=== PATIENT | male | born 1995 | race Caucasian/White ===

== ENCOUNTER 2017-04-25 20:10 | Inpatient (IN) | payer OTHER, MEDICAID ==
[2017-04-25] MEDS ORDERED: LORazepam 2 MG/ML INJ ONE (20:30)
--- NOTE | 2017-04-25 20:59 | EDPHY ---
H & P Smoking Status: Current every day smoker Time Seen by Provider: 04/25/17 20:18 HPI/ROS: CHIEF COMPLAINT: Schizophrenia HISTORY OF PRESENT ILLNESS: 22-year-old male presents to the emergency department with his mother who was delusional and paranoid. Patient has a history of the schizophrenia nausea and has been off medication for several months. His mother states that he has not been sleeping well. He has not been eating well. He denies chest pain or difficulty breathing. Denies abdominal pain. He admits to smoking cigarettes and marijuana. No reported fever. No trauma. REVIEW OF SYSTEMS: Constitutional: No fever, no chills. Eyes: No double or blurry vision. ENT: No sore throat. Respiratory: No cough, no shortness of breath. Cardiac: No chest pain. Gastrointestinal: No abdominal pain, vomiting or diarrhea. Genitourinary: No dysuria. Musculoskeletal: No neck or back pain. Skin: No rashes. Neurological: No headache. (Christy Bush) Past Medical/Surgical History: Schizophrenia (Christy Bush) Social History: Lives at home with his mother (Christy Bush) Physical Exam: General Appearance: Alert, no distress. Mother at bedside. Eyes: Pupils equal and round. Extraocular motions are all intact. ENT: Mouth: Mucous membranes moist. Respiratory: No wheezing, rhonchi, or rales, lungs are clear to auscultation. Cardiovascular: Regular rate and rhythm. Gastrointestinal: Abdomen is soft and nontender, no masses, no rebound or guarding, bowel sounds normal. Neurological: Alert and oriented x 3, cranial nerves II through XII grossly intact Skin: Warm and dry, no rashes. Musculoskeletal: Nontender to palpate along the cervical, thoracic or lumbar spine. Neck is supple. Extremities: Full range of motion and no peripheral edema. Psychiatric: Patient is oriented X 3, there is no agitation. (Christy Bush) Constitutional: Initial Vital Signs Temperature (C) 37.2 C 04/25/17 20:10 Heart Rate 112 H 04/25/17 20:10 Respiratory Rate 20 04/25/17 20:10 Blood Pressure 127/86 H 04/25/17 20:10 O2 Sat (%) 98 04/25/17 20:10 O2 Delivery Mode Room Air Allergies/Adverse Reactions: No Known Allergies Allergy (Unverified 04/25/17 20:42) Home Medications: Medication Instructions Recorded NK [No Known Home Meds] 04/25/17 Medical Decision Making ED Course/Re-evaluation: 22-year-old male presents to the emergency department a history of schizophrenia off medication. He is delusional and paranoid. He was given 2 mg of Ativan IV. Laboratory studies are pending. Patient has been medically cleared and is awaiting mental health evaluation. ( Christy Bush) Patient has been evaluated by mental health and has been accepted for admission at [facility]. He remained stable. (Bruce Brewer) Differential Diagnosis: Apparent schizophrenia exacerbation and off meds. Plan is admission (Bruce Brewer) Other Provider: PHYSICIAN DOCUMENTATION: The patient was evaluated and managed by the Physician Equipment Manager and myself. I have reviewed the chart and agree with the findings and plan of care as documented. In addition, I examined the patient myself at 2202. History confirmed as for schizophrenia off medications for the last 3 months. Physical findings as follows: Currently cooperative, not actively hallucinating. Signed out to Dr. Choco sun at 2300 with psychiatric evaluation pending. I am the secondary supervising physician. (Yung Peter) 0100 care assumed by me pending mental health evaluation. 0700 patient has been seen by the mental health landscaper helper. Plan will be to admit to [address] [place] [address]. The do not yet have an accepting doctor. Patient is signed out to Dr. Brewer pending placement. No issues during my care this patient overnight. (Alex Sun) Care Turn Over: Care will be turned over to Dr. Sun for disposition and plan. (Christy Bush ) - Data Points Laboratory Results: Laboratory Results 04/25/17 20:30 04/25/17 20:30 04/25/17 04/25/17 04/25/17 21:48 20:30 20:30 WBC 14.37 10^3/uL H 10^3/uL (3.80-9.50) RBC 4.73 10^6/uL 10^6/uL (4.40-6.38) Hgb 13.2 g/dL L g/dL (13.7-17.5) Hct 38.2 % L % (40.0-51.0) MCV 80.8 fL L fL (81.5-99.8) MCH 27.9 pg pg (27.9-34.1) MCHC 34.6 g/dL g/dL (32.4-36.7) RDW 14.7 % % (11.5-15.2) Plt Count 501 10^3/uL H 10^3/uL (150-400) MPV 8.5 fL L fL (8.7-11.7) Neut % (Auto) 77.5 % H % (39.3-74.2) Lymph % (Auto) 13.9 % L % (15.0-45.0) [place] % (Auto) 7.3 % % (4.5-13.0) Eos % (Auto) 0.3 % L % (0.6-7.6) Baso % (Auto) 0.4 % % (0.3-1.7) Nucleat RBC Rel Count 0.0 % % (0.0-0.2) Absolute Neuts (auto) 11.13 10^3/uL H 10^3/uL (1.70-6.50) Absolute Lymphs (auto) 2.00 10^3/uL 10^3/uL (1.00-3.00) Absolute Monos (auto) 1.05 10^3/uL H 10^3/uL (0.30-0.80) Absolute Eos (auto) 0.05 10^3/uL 10^3/uL (0.03-0.40) Absolute Basos (auto) 0.06 10^3/uL 10^3/uL (0.02-0.10) Absolute Nucleated RBC 0.00 10^3/uL 10^3/uL (0-0.01) Immature Gran % 0.6 % % (0.0-1.1) Immature Gran # 0.08 10^3/uL 10^3/uL (0.00-0.10) Sodium 138 mEq/L mEq/L (134-144) Potassium 4.1 mEq/L mEq/L (3.5-5.2) Chloride 105 mEq/L mEq/L (97-110) Carbon Dioxide 22 mEq/l mEq/l (22-31) Anion Gap 11 mEq/L mEq/L (8-16) BUN 12 mg/dL mg/dL (7-23) Creatinine 1.0 mg/dL mg/dL (0.7-1.3) Estimated GFR > 60 Glucose 114 mg/dL H mg/dL (70-100) Calcium 10.0 mg/dL mg/dL (8.5-10.4) TSH 1.530 uIU/mL uIU/mL (0.465-4.680) Urine Opiates Screen NEGATIVE (NEGATIVE) Urine Barbiturates NEGATIVE (NEGATIVE) Ur Phencyclidine Scrn NEGATIVE (NEGATIVE) Ur Amphetamine Screen NEGATIVE (NEGATIVE) U Benzodiazepines Scrn NEGATIVE (NEGATIVE) Urine Cocaine Screen NEGATIVE (NEGATIVE) U Marijuana (THC) Screen NEGATIVE (NEGATIVE) Medications Given: Discontinued Medications Nicotine (Nicoderm Cq) 14 mg TD EDNOW ONE Stop: 04/25/17 22:10 Last Admin: 04/25/17 22:32 Dose: 14 mg Departure - Departure Disposition: [facility] IP Clinical Impression: Schizophrenia Qualifiers: Schizophrenia type: unspecified Qualified Code(s): F20.9 - Schizophrenia, unspecified Condition: Fair Referrals: Trung Nunes DO [Primary Care Provider] - As per Instructions
[2017-04-25 21:03] LABS: % IMMATURE GRANULYOCYTES 0.6 % (0.0-1.1); ABSOLUTE IMMATURE GRANULOCYTES 0.08 10^3/uL (0.00-0.10); ADD DIFF? NO; HEMATOCRIT 38.2 % (40.0-51.0); HEMOGLOBIN 13.2 g/dL (13.7-17.5); MEAN CELL HEMOGLOBIN 27.9 pg (27.9-34.1); MEAN CELL HEMOGLOBIN CONCENTR. 34.6 g/dL (32.4-36.7); MEAN CELL VOLUME 80.8 fL (81.5-99.8); MEAN PLATELET VOLUME 8.5 fL (8.7-11.7); PLATELET COUNT 501 10^3/uL (150-400); RED BLOOD CELL COUNT 4.73 10^6/uL (4.40-6.38); RED CELL DISTRIBUTION WIDTH 14.7 % (11.5-15.2)
[2017-04-25 21:04] LABS: ADD MORPH? NO; ADD SCAN? NO; ATYPICAL LYMPHOCYTE FLAG 0 (0-99); FRAGMENT RBC FLAG 0 (0-99); LEFT SHIFT FLG 0 (0-99); LIPEMIA HEMOLYSIS FLAG 90 (0-99); PLATELET CLUMPS FLAG 0 (0-99)
[2017-04-25 21:10] LABS: ANION GAP 11 mEq/L (8-16); CARBON DIOXIDE 22 mEq/l (22-31); CHLORIDE 105 mEq/L (97-110); GLOMERULAR FILTRATION RATE > 60; GLUCOSE 114 mg/dL (70-100); POTASSIUM 4.1 mEq/L (3.5-5.2); SODIUM 138 mEq/L (134-144)
[2017-04-25] MEDS ORDERED: NICOTINE 14 MG/24 HR PATCH TD ONE (22:09)
[2017-04-26] MEDS ORDERED: MAGNESIUM HYDROXIDE 30 ML UDCUP PO PRN (11:37)
[2017-04-26] MEDS ORDERED: MAG HYDROX/AL HYDROX/SIMETH 30 ML UDCUP PO PRN (11:37)
[2017-04-26] MEDS ORDERED: OLANZapine DISINTEGR 10 MG TAB PO PRN (11:37)
[2017-04-26] MEDS ORDERED: ACETAMINOPHEN 325 MG TAB PO PRN (11:37)
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
[2017-04-26] MEDS ORDERED: NICOTINE POLACRILEX 2 MG GUM B ONE (16:46)
--- NOTE | 2017-04-26 17:30 | BCON ---
[f rep st] BEHAVIORAL HEALTH CONSULTATION INTERNAL MEDICINE CONSULTATION DATE OF CONSULTATION: 04/26/2017 REFERRING PHYSICIAN: Nicolás Coles MD REASON FOR REFERRAL: Medical clearance for inpatient behavioral health stay. HISTORY OF PRESENT ILLNESS: This patient was brought to the emergency department after his mother called 911 as she felt threatened by him. He has a history of psychosis, and he had been off his prescribed medications for several months. Per the emergency department note, his mother reported that he had not been sleeping well or eating well. He was evaluated in the emergency department and admitted for further psychiatric care. He currently is without any acute complaints. PAST MEDICAL HISTORY: 1. Mental health issues with previous psychiatric hospitalization. 2. Thyroid abnormality. He reports that his thyroid "swells up really quickly " and that he has been on medications, but is no longer taking them. PAST SURGICAL HISTORY: He denies any history of surgeries. SOCIAL HISTORY: He lives with his parents. There are other relatives living in the house. He is a tobacco smoker and marijuana user. He is a high school graduate. He is not working. FAMILY HISTORY: Noncontributory. REVIEW OF SYSTEMS: A 10-point review of systems was conducted and was negative. PHYSICAL EXAM: VITAL SIGNS: Blood pressure is 96/75, heart rate is 81, respiratory rate is 14, oxygen saturation is 98% on room air. Temperature is 36.6 degrees centigrade. His weight is 56.2 kg for a body mass index of 17.3. GENERAL: This is a thin man, appears his chronologic age, cooperative and in no acute distress. HEENT: Extraocular movements are intact. Pupils are equal , round, reactive to light. Mucous membranes are moist. Dentition is in good condition. NECK: Supple with no thyromegaly. HEART: There is a regular rate and rhythm with no murmurs, rubs, or gallops. LUNGS: Clear to auscultation bilaterally. ABDOMEN: Soft, nontender, nondistended with normoactive bowel sounds. EXTREMITIES: There is no cyanosis, clubbing, or edema. NEUROLOGIC: He is alert. Orientation was not checked. There is no focal weakness. Sensation is intact to light touch. LABORATORY STUDIES: Checked in the emergency department, CBC showed an elevated white blood cell count at 14.37. There was also a high platelet count at 401, and he had anemia with a hemoglobin of 13.2 and hematocrit of 38.2. There was no left shift. Serum chemistry was overall within normal limits. Glucose was slightly high at 114, but this was likely nonfasting. TSH was normal at 1.53. Toxicology screen was negative in the urine for any substances of abuse. ASSESSMENT/RECOMMENDATIONS: 1. Mental health issues, pending further evaluation and management per Psychiatry and the mental health team. 2. Anemia, microcytic, possibly related to low nutrition secondary to mental health status. Will add on an iron panel to the blood that was drawn yesterday in the emergency department. 3. Tobacco dependence syndrome. It would be in his best interest to stop smoking. 4. Possible history of thyroid abnormality. Wonder if this might have been precipitated by treatment with lithium. His TSH is currently normal and he shows no signs or symptoms of hyperthyroidism or hypothyroidism. I see no medical contraindications to this patient's continued stay on the inpatient behavioral health unit or to any psychiatric medications or procedures. Thank you very much for including me in the care of this patient. Please do not hesitate to contact me or the hospitalist service should there be need for further medical evaluation. /[id number]/MODL MTDD
[2017-04-26 17:36] LABS: % SATURATION 6 % (20-55); TOTAL IRON BINDING CAPACITY 320 ug/dL (260-490)
[2017-04-26] MEDS: LORazepam 0.5 MG TAB PO PRN (18:34)
[2017-04-27] MEDS: LORazepam 0.5 MG TAB PO PRN (08:21)
[2017-04-27] MEDS: NICOTINE POLACRILEX 2 MG GUM B PRN ×4 (08:22→19:20)
[2017-04-27] MEDS ORDERED: OLANZapine DISINTEGR 10 MG TAB PO PRN (11:43)
--- NOTE | 2017-04-27 12:24 | SOAPPROG ---
SOHEIDI Progress Note Assessment/Plan: Assessment: Iron deficiency anemia. Seems unlikely to be due to nutritional deficiency. Advise referral for further evaluation as an outpatient to possibly include upper and lower endoscopy. Plan: 04/27/17 12:23 Subjective: Labs reviewed. Very iron deficient. Objective: Vital Signs Temp Pulse Resp BP Pulse Ox 36.5 C 73 14 116/56 L 95 04/27/17 06:00 04/27/17 06:00 04/27/17 06:00 04/27/17 06:00 04/27/17 06:00 ICD10 Worksheet Patient Problems: Problems Problem Status Onset Schizophrenia Acute
[2017-04-27] MEDS: FERROUS SULFATE 325 MG TAB PO SCH (12:51)
--- NOTE | 2017-04-27 14:21 | SOAPPROG ---
SOAP Progress Note Assessment/Plan: Assessment: Plan: 04/27/17 14:21 Pt remains psychotic. Agreeable to trial of Zyprexa. Will begin at 5mg at HS, monitor. Subjective: Pt seen, discussed with staff. Reports feeling "pretty good." Discussed meeting with mother last night and pt states, "I have an inherited family illness called incflorecita." He states he continues to hear his mother's voice talking to him. This agitated him last night and this upset his mother. I discussed with him the purpose of medications in suppressing these voices and he is agreeable to trying Zyprexa. The risks, benefits and alternatives of this are reviewed with pt. Objective: Vital Signs Temp Pulse Resp BP Pulse Ox 36.5 C 73 14 116/56 L 95 04/27/17 06:00 04/27/17 06:00 04/27/17 06:00 04/27/17 06:00 04/27/17 06:00 - Time Spent With Patient Time Spent With Patient: 25" ICD10 Worksheet Patient Problems: Problems Problem Status Onset Schizophrenia Acute
[2017-04-27] MEDS: OLANZapine DISINTEGR 5 MG TAB PO SCH (20:34)
[2017-04-28] MEDS: FERROUS SULFATE 325 MG TAB PO SCH (08:27)
[2017-04-28] MEDS: NICOTINE POLACRILEX 2 MG GUM B PRN ×2 (12:37→14:44)
--- NOTE | 2017-04-28 13:04 | SOAPPROG ---
SOAP Progress Note Assessment/Plan: Assessment: Plan: 04/27/17 14:21 Pt remains psychotic. Agreeable to trial of Zyprexa. Will begin at 5mg at HS, monitor. 04/28/17 13:05 Slept better with Zyprexa. Compliant. Psychosis remains severe. CCM. Subjective: Pt seen, discussed with staff. Reports feeling "really bored" in the hospital. Wants to "leave and go smoke something." States he is "being tortured by all the screaming voices in my head." This includes his mother's voice and numerous other unidentified voices. He then states his pants are talking to him and are very annoying. He becomes agitated and tearful when I inform him of the STC. I discussed with him the criteria to release the STC inc: improvement of AH's, resolution of agitation and irritability, stabilization of sleep and normalization of weight. Appreciate Dr. Amaya's input on blood dyscrasia. Objective: Vital Signs Temp Pulse Resp BP Pulse Ox 36.7 C 78 16 106/58 L 98 04/28/17 06:00 04/28/17 06:00 04/28/17 06:00 04/28/17 06:00 04/28/17 06:00 MSE: Marginally groomed, agitated, guarded. Affect is irritable, angry at times, labile. Mood is "bad." TP disorganized. TC reveals paranoid and bizarre ideations, AH's and IOR's. - Time Spent With Patient Time Spent With Patient: 25" ICD10 Worksheet Patient Problems: Problems Problem Status Onset Schizophrenia Acute
[2017-04-28] MEDS: OLANZapine DISINTEGR 5 MG TAB PO SCH (21:11)
[2017-04-29] MEDS: FERROUS SULFATE 325 MG TAB PO SCH (08:41)
[2017-04-29] MEDS: NICOTINE POLACRILEX 2 MG GUM B PRN (10:55)
--- NOTE | 2017-04-29 16:19 | SOAPPROG ---
SOAP Progress Note Assessment/Plan: Assessment: Plan: 04/27/17 14:21 Pt remains psychotic. Agreeable to trial of Zyprexa. Will begin at 5mg at HS, monitor. 04/28/17 13:05 Slept better with Zyprexa. Compliant. Psychosis remains severe. CCM. 04/29/17 16:19 Psychosis: Slight improvement though remains agitated, paranoid. CCM. Subjective: Pt seen, discussed with staff. Remains agitated, disorganized, paranoid, hallucinating. Reports continued intrusive voices and "thoughts" of other people. Remains focused on mother's voice and thoughts. Intermittently agitated. Continues to request d/c primarily to smoke. Objective: Vital Signs Temp Pulse Resp BP Pulse Ox 36.5 C 70 14 122/61 H 99 04/29/17 06:00 04/29/17 06:00 04/29/17 06:00 04/29/17 06:00 04/29/17 06:00 MSE: Moderately agitated, guarded. Affect is constricted, irritable. Mood is "bad." TP disorganized. TC reveals continued paranoia, IOR's, AH's of mother' s voice and multiple other voices. - Time Spent With Patient Time Spent With Patient: 15" ICD10 Worksheet Patient Problems: Problems Problem Status Onset Schizophrenia Acute
[2017-04-29] MEDS: OLANZapine DISINTEGR 10 MG TAB PO SCH (19:21)
[2017-04-30] MEDS: FERROUS SULFATE 325 MG TAB PO SCH (08:18)
[2017-04-30] MEDS: NICOTINE POLACRILEX 2 MG GUM B PRN ×2 (09:52→14:40)
--- NOTE | 2017-04-30 15:09 | SOAPPROG ---
SOAP Progress Note Assessment/Plan: Assessment: Plan: 04/27/17 14:21 Pt remains psychotic. Agreeable to trial of Zyprexa. Will begin at 5mg at HS, monitor. 04/28/17 13:05 Slept better with Zyprexa. Compliant. Psychosis remains severe. CCM. 04/29/17 16:19 Psychosis: Slight improvement though remains agitated, paranoid. CCM. 04/30/17 15:10 Improving. CCM. Subjective: Pt seen, discussed with staff. Reports feeling "a lot better." Reports softer and less intrusive voices. Less paranoia. He does state, "I don't think I'd be safe around my family because I might grab them or hug them too tight." He describes "having a little fight with my mom last night." He states this was because "I was mocking her." Tolerating Zyprexa well with no SE's. Objective: Vital Signs Temp Pulse Resp BP Pulse Ox 36.6 C 90 14 111/67 97 04/30/17 06:00 04/30/17 06:00 04/30/17 06:00 04/30/17 06:00 04/30/17 06:00 MSE: Much calmer, more composed. Affect is more stable, less irritable, less tearful. Mood is "better." TP is more linear, fewer BOUCHRA's. TC reveals continue paranoid thoughts, IOR's, AH's, but better. ICD10 Worksheet Patient Problems: Problems Problem Status Onset Schizophrenia Acute
[2017-04-30] MEDS: OLANZapine DISINTEGR 10 MG TAB PO SCH (20:25)
[2017-05-01] MEDS: NICOTINE POLACRILEX 2 MG GUM B PRN (02:05)
[2017-05-01] MEDS: FERROUS SULFATE 325 MG TAB PO SCH (08:29)
[2017-05-01] MEDS: LORazepam 0.5 MG TAB PO PRN (16:51)
[2017-05-01] MEDS: OLANZapine DISINTEGR 10 MG TAB PO SCH (20:26)
--- NOTE | 2017-05-01 21:30 | SOAPPROG ---
SOAP Progress Note Assessment/Plan: Assessment: 22yo CM admitted w/acute psychosis, possibly with SZP, also heavy THC use. On ST. 05/01/17 11:11 Per staff, pt slept 8.5hr. attending groups. Pt reports having "the most amazing dream ever" last pm, which he described as hugging women and watching fireworks. states slept generally well, but was up once for 30min states appetite is increased, "I pooped 5 times yesterday" and states he has been asking for a laxative. "already pooped 3 times this morning". has been attending groups, today "felt a pressure on my back and movement in my back" when a female peer joined group briefly. states "she started mumbling" words remarkably "that were what I was thinking...like an epiphany...I wanted to share 1/2 of my drawing paper with her ". admits sometimes feels anxious with such experiences b/c not sure if it will be positive or negative. has this experience sometimes from an older male peer on unit. This doesn't bother him, "it makes me feel like an open book" when others speak his thoughts. Talked of what he shared in group today, including how he felt: "I told them ' plane' ...turbulence...[place] you [place] the airport, makes me think of lax-ative, plane" Does state he has been dxd'd with ADHD, delusional and Schizophrenia, also that "I'm trying to quit (THC) but it calms me...", and states others in family also use THC. did not seem committed to THC sobriety. Admits also to using edible Sativa chews. denied med s/e or any other physical complaints, except frequent BM and thinks he has lost some weight despite incr appetite recently. MSE: cooperative, good eye contact, nml speech rate/vol, engaged, nml speech rate, mood "pretty good", affect full, tc/tp-denied any SI or any thoughts/plan/ intent to harm others. denied AH/VH. +delusional thoughts expressed and experiencing thought broadcasting and loose associations. odd perseverations on bowel mvmts and laxatives. PLAN: on [facility] continue zyprexa 10mg qhs. just increased yesterday. continues psychotic cont other meds as before. monitor freq of BM, and possibly also his eating habits. seems to have some preoccupations Objective: Vital Signs Temp Pulse Resp BP Pulse Ox 36.7 C 85 14 135/84 H 96 05/01/17 06:00 05/01/17 06:00 05/01/17 06:00 05/01/17 06:00 05/01/17 06:00 - Time Spent With Patient Time Spent With Patient: 25min - Pending Discharge Pending Discharge Within 24 Hours: No Pending Discharge Within 48 Hours: No ICD10 Worksheet Patient Problems: Problems Problem Status Onset Schizophrenia Acute
[2017-05-02] MEDS: FERROUS SULFATE 325 MG TAB PO SCH (08:44)
[2017-05-02] MEDS: NICOTINE POLACRILEX 2 MG GUM B PRN (17:34)
[2017-05-02] MEDS: OLANZapine DISINTEGR 10 MG TAB PO SCH (20:07)
--- NOTE | 2017-05-02 21:32 | SOAPPROG ---
SOAP Progress Note Assessment/Plan: Assessment: 22yo CM admitted w/acute psychosis, possibly with SZP, also heavy THC use. On ST. 05/01/17 11:11 Per staff, pt slept 8.5hr. attending groups. Pt reports having "the most amazing dream ever" last pm, which he described as hugging women and watching fireworks. states slept generally well, but was up once for 30min states appetite is increased, "I pooped 5 times yesterday" and states he has been asking for a laxative. "already pooped 3 times this morning". has been attending groups, today "felt a pressure on my back and movement in my back" when a female peer joined group briefly. states "she started mumbling" words remarkably "that were what I was thinking...like an epiphany...I wanted to share 1/2 of my drawing paper with her ". admits sometimes feels anxious with such experiences b/c not sure if it will be positive or negative. has this experience sometimes from an older male peer on unit. This doesn't bother him, "it makes me feel like an open book" when others speak his thoughts. Talked of what he shared in group today, including how he felt: "I told them ' plane' ...turbulence...[place], you know the airport, makes me think of lax-ative, plane" Does state he has been dxd'd with ADHD, delusional and Schizophrenia, also that "I'm trying to quit (THC) but it calms me...", and states others in family also use THC. did not seem committed to THC sobriety. Admits also to using edible Sativa chews. denied med s/e or any other physical complaints, except frequent BM and thinks he has lost some weight despite incr appetite recently. MSE: cooperative, good eye contact, nml speech rate/vol, engaged, nml speech rate, mood "pretty good", affect full, tc/tp-denied any SI or any thoughts/plan/ intent to harm others. denied AH/VH. +delusional thoughts expressed and experiencing thought broadcasting and loose associations. odd perseverations on bowel mvmts and laxatives. PLAN: on [facility] continue zyprexa 10mg qhs. just increased yesterday. continues psychotic cont other meds as before. monitor freq of BM, and possibly also his eating habits. seems to have some preoccupations 05/02/17 14:00 per staff, slept 7.5hr. attending groups. seems better on the surface. had good visit with mother yesterday. told cc he has given up THC, will pray daily and do chores in order to return home. pt denied any med s/e. "I think the medications are working" but not able to say how psychiatrically, altho feels he is "pooping less", "I went 3 to 4 times already". reports visit today with mother went well today, she brought him food 'and I shared' with a peer whom he promised a Big Mac. talked more of his visit with mother today- looked down at hand and began counting on his fingers (??) "I hugged my mom after she cried...then I crossed my legs like this ( demonstrates normal leg crossing while sitting in chair), and she intertwined her leg over mine...it felt comfy...she left with a smile..." mood "good". affect full, almost hypomanic. wearing wool hat. nml speech rate/ vol. denied SI/HI. i/j impaired. odd thought content. denied experiencing others speaking this thoughts aloud today. denied AH/VH except that "I hear my dad talking", states he experienced this while mother present for visit today, and she did too, and said 'Russel Barros'... "but I don't want to say what he did on a spiritual level to my mom, it would be inappropriate...". PLAN: cont zyprexa 10mg qhs. continues with odd and delusional thoughts noted with decr weight than on admission. still reporting incr freq of BM. started Fe+ suppl for anemia. informed staff of pt reporting freq BM, perhaps also monitor po intake more closely Objective: Vital Signs Temp Pulse Resp BP Pulse Ox 36.5 C 75 12 109/60 96 05/02/17 06:00 05/02/17 06:00 05/02/17 06:00 05/02/17 06:00 05/02/17 06:00 - Pending Discharge Pending Discharge Within 24 Hours: No Pending Discharge Within 48 Hours: No ICD10 Worksheet Patient Problems: Problems Problem Status Onset Schizophrenia Acute
[2017-05-03] MEDS: FERROUS SULFATE 325 MG TAB PO SCH (08:13)
[2017-05-03] MEDS: LORazepam 0.5 MG TAB PO PRN ×2 (08:13→23:23)
[2017-05-03] MEDS: OLANZapine DISINTEGR 10 MG TAB PO SCH (20:43)
[2017-05-03] MEDS: NICOTINE POLACRILEX 2 MG GUM B PRN (21:21)
[2017-05-04] MEDS: FERROUS SULFATE 325 MG TAB PO SCH (08:23)
[2017-05-04] MEDS: LORazepam 0.5 MG TAB PO PRN (16:24)
--- NOTE | 2017-05-04 19:01 | SOAPPROG ---
SOAP Progress Note Assessment/Plan: Assessment: Plan: 04/27/17 14:21 Pt remains psychotic. Agreeable to trial of Zyprexa. Will begin at 5mg at HS, monitor. 04/28/17 13:05 Slept better with Zyprexa. Compliant. Psychosis remains severe. CCM. 04/29/17 16:19 Psychosis: Slight improvement though remains agitated, paranoid. CCM. 04/30/17 15:10 Improving. CCM. 05/04/17 19:01 Continued improvement. CCM. Subjective: LATE ENTRY FOR 05/03/17 Pt seen, discussed with staff, chart reviewed. He reports feeling "really good. " WE went well with no issues. Continues to lose weight despite claims that he is eating adquately. Reports less intrusive AH's. [facility]. Objective: Vital Signs Temp Pulse Resp BP Pulse Ox 36.6 C 78 16 112/72 97 05/04/17 06:18 05/04/17 06:18 05/04/17 06:18 05/04/17 06:18 05/04/17 06:18 MSE: Marginally groomed, coop. Affect is blunted, stable. Mood is "great". TP disorganized. TC reveals paranoia, IOR. - Time Spent With Patient Time Spent With Patient: 15" ICD10 Worksheet Patient Problems: Problems Problem Status Onset Schizophrenia Acute
--- NOTE | 2017-05-04 19:05 | SOAPPROG ---
SOAP Progress Note Assessment/Plan: Assessment: Plan: 04/27/17 14:21 Pt remains psychotic. Agreeable to trial of Zyprexa. Will begin at 5mg at HS, monitor. 04/28/17 13:05 Slept better with Zyprexa. Compliant. Psychosis remains severe. [facility]. 04/29/17 16:19 Psychosis: Slight improvement though remains agitated, paranoid. [facility]. 04/30/17 15:10 Improving. CCM. 05/04/17 19:01 Continued improvement. [facility]. 05/04/17 19:04 Difficult to assess today. May be declining. THis could represent medication non-compliance. Will Increase Zyprexa to 15mg, monitor administration closely. Subjective: Pt seen, discussed with staff. REports feeling "just fine" though has been engaging in arguments with other patients and mentions being "afraid" that others are acting against him. Objective: Vital Signs Temp Pulse Resp BP Pulse Ox 36.6 C 78 16 112/72 97 05/04/17 06:18 05/04/17 06:18 05/04/17 06:18 05/04/17 06:18 05/04/17 06:18 MSE: Moderately agitated, restless, guarded. Affect is constricted, stable. Mood is "fine." TP is more disorganized today. Refuses to discuss AH's, guarded. - Time Spent With Patient Time Spent With Patient: 25" ICD10 Worksheet Patient Problems: Problems Problem Status Onset Schizophrenia Acute
[2017-05-04] MEDS: NICOTINE POLACRILEX 2 MG GUM B PRN (19:09)
[2017-05-04] MEDS: OLANZapine DISINTEGR 10 MG TAB PO SCH (21:37)
[2017-05-05] MEDS: LORazepam 0.5 MG TAB PO PRN ×2 (00:09→18:00)
[2017-05-05] MEDS: FERROUS SULFATE 325 MG TAB PO SCH (08:33)
[2017-05-05] MEDS: NICOTINE POLACRILEX 2 MG GUM B PRN ×2 (15:43→19:25)
--- NOTE | 2017-05-05 16:39 | SOAPPROG ---
SOAP Progress Note Assessment/Plan: Assessment: Plan: 04/27/17 14:21 Pt remains psychotic. Agreeable to trial of Zyprexa. Will begin at 5mg at HS, monitor. 04/28/17 13:05 Slept better with Zyprexa. Compliant. Psychosis remains severe. CCM. 04/29/17 16:19 Psychosis: Slight improvement though remains agitated, paranoid. CCM. 04/30/17 15:10 Improving. CCM. 05/04/17 19:01 Continued improvement. CCM. 05/04/17 19:04 Difficult to assess today. May be declining. THis could represent medication non-compliance. Will Increase Zyprexa to 15mg, monitor administration closely. 05/05/17 16:40 Improved today. Will CCM. Subjective: Pt seen, discussed with staff. Had several more verbal altercations with younger males. He remains paranoid, believing others are collaborating against him at times. Family meeting held with CC and pts mother. Pt became agitated at one point, but was able to redirect. He remains very sensitive to any perceived negative feedback from mother. Mother sees him as significantly improved. Plan is set for likely d/c on Wednesday if all is well. Need to see continued improvements in impulse control and irritability. Objective: Vital Signs Temp Pulse Resp BP Pulse Ox 36.6 C 103 H 16 134/78 H 95 05/05/17 06:00 05/05/17 06:00 05/05/17 06:00 05/05/17 06:00 05/05/17 06:00 - Time Spent With Patient Time Spent With Patient: 55" ICD10 Worksheet Patient Problems: Problems Problem Status Onset Schizophrenia Acute
[2017-05-05] MEDS: OLANZapine DISINTEGR 10 MG TAB PO SCH (19:11)
[2017-05-06 06:13] VITALS: TEMP 97.6
[2017-05-06] MEDS: FERROUS SULFATE 325 MG TAB PO SCH (08:02)
[2017-05-06] MEDS: LORazepam 0.5 MG TAB PO PRN (16:35)
[2017-05-06] MEDS: NICOTINE POLACRILEX 2 MG GUM B PRN (16:36)
--- NOTE | 2017-05-06 17:23 | SOAPPROG ---
SOAP Progress Note Assessment/Plan: Assessment: Plan: 04/27/17 14:21 Pt remains psychotic. Agreeable to trial of Zyprexa. Will begin at 5mg at HS, monitor. 04/28/17 13:05 Slept better with Zyprexa. Compliant. Psychosis remains severe. CCM. 04/29/17 16:19 Psychosis: Slight improvement though remains agitated, paranoid. CCM. 04/30/17 15:10 Improving. CCM. 05/04/17 19:01 Continued improvement. CCM. 05/04/17 19:04 Difficult to assess today. May be declining. THis could represent medication non-compliance. Will Increase Zyprexa to 15mg, monitor administration closely. 05/05/17 16:40 Improved today. Will CCM. 05/06/17 17:23 Psychosis: Much improved. Behaviors are stable. CCM. Likely d/c tomorrow if all is well. Subjective: Pt seen, discussed with staff. Reports feeling "great." No arguments or negative interactions today. Eating better. Compliant with meds. Reviewed d/ c plan inc: abstinence from cannabis. He is agreeable to this, though ambivalent stating, "I would like my mom to save my bag of hash for me." Objective: Vital Signs Temp Pulse Resp BP Pulse Ox 36.4 C 103 H 16 157/70 H 97 05/06/17 06:00 05/06/17 08:10 05/06/17 08:10 05/06/17 08:10 05/06/17 08:10 - Time Spent With Patient Time Spent With Patient: 25" ICD10 Worksheet Patient Problems: Problems Problem Status Onset Schizophrenia Acute
[2017-05-06] MEDS: OLANZapine DISINTEGR 10 MG TAB PO SCH (19:21)
[2017-05-07 06:26] VITALS: BP 112/67; PULSE 84; RESP 14; O2SAT 98
[2017-05-07] MEDS: FERROUS SULFATE 325 MG TAB PO SCH (08:07)
--- NOTE | 2017-05-07 13:57 | BDS ---
[f rep st] BEHAVIORAL HEALTH DISCHARGE SUMMARY REASON FOR ADMISSION: The patient is a 22-year-old male who was admitted from the emergenc y department after having been brought to the hospital by police. He had become increasingly paranoi d and agitated at home, was fixated on hearing voices, specifically that of his mother telling him to do things and had become physically aggressive and even sexually threatening toward his mother in th e home. She called the police and patient was aggressive with the police, requiring physical restrai nt, and was transported to the emergency department on an M1 hold. In the emergency department, he w as noted to be paranoid, hallucinating, agitated and was admitted for further evaluation and stabiliz ation. A full description of the events preceding admission can be found in his admission history samanta ayala 04/26/2017. ADMITTING DIAGNOSES: 1. Psychotic disorder, not otherwise specified. 2. Cannabis use disorder, severe. 3. 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 4. Chronic illness. 5. Family conflict. 6. Unemployment. ADMITTING PHYSICAL EXAMINATION: Performed by Dr. Bennett Amaya shows some anemia that was microcyt ic in nature, otherwise no acute physical findings. ADMISSION LABORATORY: CBC showed white count of 14.37, hemoglobin, hematocrit down at 13.2 and 38.2 respectively, MCV was low at 80.8, platelets were high at 501,000. Serum chemistries were normal with the exception of a nonfasting glucose of 114. Iron was low at 19, TIBC was normal at 320, and iron saturation was low at 6. TSH was normal at 1.53. Urine drug scree n showed no substances of abuse. HOSPITAL COURSE: Patient was admitted to behavior health services inpatient unit on an M1 hold. He was guarded, somewhat agitated, paranoid, but also demonstrated significant pressure of speech and in trusive behaviors that had a manic like flare. He reported intrusive, loud voices of his mother and stated he could hear other people's thoughts including his mother's thoughts. He was preoccupied ini tially with incest, stating that he was having dreams and fantasies of having sex with his mother and that, when she came to visit, he would tell her this which was upsetting to her. Ultimately, he was agreeable to taking Zyprexa which was started at 5 mg h.s., and then increased to 10 and 15 mg at h. s. He tolerated this well with no side effects. His auditory hallucinations and ideas of reference slowly decreased and then ultimately resolved during his hospitalization. He had several episodes of behavioral dyscontrol where he would become angry with other similar aged psychotic males for reason s that were difficult to understand and were somewhat mutual but that he would become upset and yell and have to be . At no time did he have any physical altercations. These resolved several days prior to discharge as well. Patient's hospitalization was otherwise uncomplicated. He was compliant with medication throughout. He demonstrated poor insight into the influence of cannabis on his symptoms, though in a family meet ing held 2 days prior to discharge, he did agree with his mother to not use any cannabis containing m aterials while he was in her home after discharge. He stated he would follow up with the [facility] and continue to take Zyprexa. CONDITION ON DISCHARGE: Stable. His affect was euthymic, stable and appropriate. His behaviors wer e stable. He was displaying no irritability, hostility or aggression. He was denying auditory hallu cinations. He was tolerating his medicines well with no side effects. DISCHARGE MEDICATIONS: Zyprexa 15 mg p.o. q.h.s., Ativan 0.5 mg every 4 hours as needed for anxiety. DISCHARGE DIAGNOSES: 1. Psychotic disorder, not otherwise specified. 2. 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 3. Possible atypical nilda with psychosis. 4. Family conflicts. 5. Unemployment. 6. Cannabis use disorder, severe. DISPOSITION: The patient was released from the hospital with his mother to return to their home. FOLLOWUP: With [facility] in [place], [place] as scheduled by critical care physician ra thomas Wednesday. LEGAL COURSE: Patient was placed on a short-term certification at the expiration of his M1 hold. Th e short-term certification was discontinued at time of his discharge. /[id number]
== END 2017-05-07 17:25 | disposition home or self-care (01) | DRG 885 ==
LOC: BBEH 04-26 10:29
PROVIDERS: ADMIT Psychiatry & Neurology Psychiatry; ATTEND Psychiatry & Neurology Psychiatry
DX: F23 Brief psychotic disorder (principal); F12.90 Cannabis use, unspecified, uncomplicated; F17.210 Nicotine dependence, cigarettes, uncomplicated; D50.9 Iron deficiency anemia, unspecified
CPT/HCPCS: 80305; J2060